=== PATIENT | female | born 1995 | race Caucasian/White ===

== ENCOUNTER 2016-07-21 15:29 | Outpatient (CLI) | payer MEDICAID ==
[2016-07-21 16:35] LABS: ABSOLUTE LYMPHOCYTES (AUTO) 2.3 10^3/uL (0.5-4.7); ABSOLUTE MONOCYTES (AUTO) 0.8 10^3/uL (0.1-1.4); ABSOLUTE NEUT (AUTO) 8.4 10^3/uL (1.7-8.2); BASOPHILS % (AUTO) 0.3 % (0-2); EOSINOPHILS % (AUTO) 0.4 % (0-6); HEMATOCRIT 33.9 % (36.0-47.0); HEMOGLOBIN 11.8 g/dL (12.0-15.5); HGB HCT DIFFERENCE 1.5; LYMPHOCYTES % (AUTO) 19.7 % (13-45); MEAN CORPUSCULAR HEMOGLOBIN 30.2 pg (27.0-33.4); MEAN CORPUSCULAR HGB CONC 34.8 g/dL (32.0-36.0); MEAN CORPUSCULAR VOLUME 87 fl (80-97); MONOCYTES % (AUTO) 6.9 % (3-13); RED CELL DISTRIBUTION WIDTH 14.4 % (11.5-14.0); SEGMENTED NEUTROPHILS % (AUTO) 72.7 % (42-78); WHITE BLOOD COUNT 11.5 10^3/uL (4.0-10.5)
[2016-07-21 16:51] LABS: APPEARANCE,URINE CLOUDY; BILIRUBIN,URINE NEGATIVE (NEGATIVE); GLUCOSE, URINE NEGATIVE (NEGATIVE); KETONES,URINE NEGATIVE (NEGATIVE); LEUKOCYTE ESTERASE,URINE TRACE (NEGATIVE); NITRITE,URINE NEGATIVE (NEGATIVE); PROTEIN,URINE 100 mg/dL (NEGATIVE); UROBILINOGEN,URINE NEGATIVE mg/dL (<2.0)
[2016-07-21 17:04] LABS: URINE BARBITURATES SCREEN NEGATIVE; URINE METHADONE SCREEN NEGATIVE; URINE OPIATES LOW NEGATIVE; URINE PHENCYCLIDINE SCREEN NEGATIVE
--- NOTE | 2016-07-21 18:01 | L&D Flow Sheet ---
LD Flowsheet Datetime Report Generated by CPN: 07/21/2016 18:00 Datetime: 07/21/2016 17:16 NBP Sys/Susan/Mean (mmHg): 115 (QS system process) : 75 (QS system process) : 91 (QS system process) Pulse: 84 (QS system process) Communication: RN at Bedside; Provider at Bedside (Dina Thomas RN) Communication Comments: Phoebe Ang CNM at bedside discussing the importance of IV fluids and an IV antibiotic, patient refusing at this time and would like to talk to Dr. Campos who is on his way to the hospital. Encouraged patient to drink her pitcher of water. (Dina Thomas RN) Datetime: 07/21/2016 17:15 Exam by: Phoebe Sav CNM (Dina Thomas RN) Vaginal Exam Comments: scant blood noticed on glove upon gentle examination (Dina Thomas RN) Datetime: 07/21/2016 17:12 Communication: RN at Bedside; Provider at Bedside (Dina Thomas RN) Provider Notified (Name): Phoebe Sav CNM (Dina Thomas, NATALIE) Communication Comments: discussing plan of care including checking for blood in the vagina, IV fluids, and antibiotics (Dina Thomas RN) Datetime: 07/21/2016 17:11 Communication Comments: Phoebe Ang DONIS on phone with Dr. Campos reviewing urine results and blood. Orders received for 2L IV fliuids, 1 gram Ancef IV, and RX for Macrobid (Dina Thomas RN) Datetime: 07/21/2016 17:10 Communication: Provider Orders Received; Call/Page Placed to Provider (Dina Thomas RN) Provider Notified (Name): Phoebe Ang CNM (Dina Thomas RN) Notification Reason: Lab/Diagnostic Study (Dina Thomas RN) Communication Comments: RN was notified by lab that patient had an unconfirmed positive for THC. Relayed the information to Phoebe Ang CNM the director of clinical services who gave order to get a confirmation. (Dina Thomas RN) Datetime: 07/21/2016 16:47 NBP Sys/Susan/Mean (mmHg): 93 (QS system process) : 57 (QS system process) : 70 (QS system process) Pulse: 81 (QS system process) Datetime: 07/21/2016 16:30 Monitor Mode: External; Palpation (Dina Isabellatt, RN) Frequency (min): 0 (Dina Isabellatt, RN) Resting Tone (Palpate): Relaxed (Dina Isabellatt, RN) Datetime: 07/21/2016 16:21 IV/Blood Work: Labs Drawn (Dina Isabellatt, RN) Datetime: 07/21/2016 16:16 NBP Sys/Susan/Mean (mmHg): 106 (QS system process) : 66 (QS system process) : 79 (QS system process) Pulse: 78 (QS system process) Datetime: 07/21/2016 16:15 Pain Scale: 0 (Dina Thomas RN) Pain Assessment Comments: patient denies any current cramping. (Dina Thomas RN) Vaginal Bleeding: Normal Show (Annotations: spotting after being checked at the office) (Dina Thomas RN) Level of Consciousness: Fully Conscious (Dina Thomas RN) DTR's/Clonus: DTRs 2+; No Clonus (Dina Thomas RN) Headache: Denies (Dina Thomas RN) Breath Sounds, Left: Clear and Equal (Dina Thomas RN) Breath Sounds, Right: Clear and Equal (Dina Thomas RN) Nausea/Vomiting: Denies (Dina Thomas RN) RUQ Epigastric Pain: Denies (Dina Thomas RN) Instructional Method: Demo; Verbal; Patient Instructed; Verbalized Understanding (Dina Thomas RN) Plan of Care: Plan of Care Discussed (Dina Thomas RN) Unit Routine: [place] to Room; Call [place]; Bed; Monitoring (Dina Thomas RN) Datetime: 07/21/2016 16:14 Comments: 140-150, appropriate for gestational age (Dina Thomas RN)
== END 2016-07-21 17:58 | disposition home or self-care (01) ==
LOC: LC 15:29
PROVIDERS: ATTEND Obstetrics & Gynecology
PROC: 4A1HXCZ Monitoring of Products of Conception, Cardiac Rate, External Approach (ICD-10-PCS; principal; 2016-07-21)
DX: O23.42 Unspecified infection of urinary tract in pregnancy, second trimester (principal); Z3A.23 23 weeks gestation of pregnancy
CPT/HCPCS: 59899; 36415; 87086; 85025; 81001; 80307; G0480 ×2

== ENCOUNTER 2017-01-29 22:46 | Emergency (ER) | payer MEDICAID ==
[2017-01-30] MEDS ORDERED: HYDROCODONE/ACETAMINOPHEN 5-325 MG TABLET PO ONE (00:24)
--- NOTE | 2017-01-30 00:25 | ER Document Report ---
ED General - General Chief Complaint: Toothache Stated Complaint: HEADACHE AND TOOTHACHE Time Seen by Provider: 01/29/17 23:56 Notes: Patient is a 21-year-old female who presents with diffuse jaw pain causing a headache. Patient is scheduled to have her left upper and bilateral lower wisdom teeth removed on . States that the pain over the last week has gotten progressively worse to the point where she can no longer sleep. Does describe as a constant, dull, aching pain. Movement of her jaw or talking worsens the pain. She saw her dentist who did prescribe Tylenol 3 which she states this did not control her pain and she was referred to the emergency department for additional pain management. She denies any difficulty breathing or swallowing. No fever or constitutional symptoms. TRAVEL OUTSIDE OF THE [place] IN LAST 30 DAYS: No - Related Data Allergies/Adverse Reactions: No Known Allergies Allergy (Verified 07/21/16 16:38) Past Medical History - General Information source: Patient - Social History Smoking Status: Never Smoker Frequency of alcohol use: None Drug Abuse: None Lives with: Spouse/Significant other Family History: Reviewed & Not Pertinent Patient has suicidal ideation: No Patient has homicidal ideation: No Renal/ Medical History: Denies: Hx Peritoneal Dialysis Past Surgical History: Reports: Hx Tonsillectomy Review of Systems - Review of Systems Notes: Constitutional: Negative for fever. HENT: Negative for sore throat. Positive for dental pain. Eyes: Negative for visual changes. Cardiovascular: Negative for chest pain. Respiratory: Negative for shortness of breath. Gastrointestinal: Negative for abdominal pain, vomiting or diarrhea. Genitourinary: Negative for dysuria. Musculoskeletal: Negative for back pain. Skin: Negative for rash. Neurological: Negative for headaches, weakness or numbness. 10 point ROS negative except as marked above and in HPI. Physical Exam - Vital signs Vitals: Temp Pulse Resp BP Pulse Ox 97.6 F 92 20 140/88 H 100 01/29/17 22:58 01/29/17 22:58 01/29/17 22:58 01/29/17 22:58 01/29/17 22:58 Interpretation: Normal Notes: PHYSICAL EXAMINATION: GENERAL: Well-appearing, well-nourished and in no acute distress. HEAD: Atraumatic, normocephalic. EYES: Pupils equal round and reactive to light, extraocular movements intact, sclera anicteric, conjunctiva are normal. ENT: nares patent, oropharynx clear without exudates. Moist mucous membranes. NECK: Normal range of motion, supple without lymphadenopathy LUNGS: Breath sounds clear to auscultation bilaterally and equal. No wheezes rales or rhonchi. HEART: Regular rate and rhythm without murmurs ABDOMEN: Soft, nontender, normoactive bowel sounds. No guarding, no rebound. No masses appreciated. EXTREMITIES: Normal range of motion, no pitting or edema. No cyanosis. NEUROLOGICAL: No focal neurological deficits. Moves all extremities spontaneously and on command. PSYCH: Normal mood, normal affect. SKIN: Warm, Dry, normal turgor, no rashes or lesions noted. Course - Re-evaluation Re-evalutation: 01/30/17 00:23 Presentation is most consistent with multiple impacted wisdom teeth. She is scheduled for surgery on but states her pain is so severe it is preventing her from sleeping. Airway is patent. Vitals within normal limits. Patient is able swallow without any difficulty. There is no significant facial swelling. Patient will be given a very limited number of pain medications. [place] database matches the report patient gave me in regards to the pain meds she has filled. I've instructed to follow-up with dentistry as earliest ability for definitive management. Return precautions and follow-up recommendations have been discussed at length. - Vital Signs Vital signs: Temp Pulse Resp BP Pulse Ox 97.8 F 74 16 121/76 99 01/30/17 00:41 01/30/17 00:41 01/30/17 00:41 01/30/17 00:41 01/30/17 00:41 Discharge - Discharge Clinical Impression: Jaw pain Condition: Good Disposition: HOME, SELF-CARE Additional Instructions: You have been seen for dental pain. It is very important that you follow-up with a dentist for definitive care. Please return if you develop fever greater than 101, swelling in your face, vomiting, difficulty breathing or swallowing, or any other symptoms that are concerning to you. For pain you should take ibuprofen 600 mg every 6 hours as needed. Prescriptions: Hydrocodone/Acetaminophen [[place] 5-325 mg Tablet] 1 tab PO Q8HP PRN #8 tablet PRN Reason:
[2017-01-30 00:42] VITALS: BP 121/76
== END 2017-01-30 00:43 | disposition home or self-care (01) ==
LOC: ER 22:46
DX: R68.84 Jaw pain (principal); G89.18 Other acute postprocedural pain; R51 Headache
CPT/HCPCS: 99282